=== PATIENT | male | born 2000 | race Caucasian/White ===

== ENCOUNTER 2019-02-26 12:55 | Emergency (ER) | payer MEDICAID ==
[2019-02-26 13:21] VITALS: O2SAT 98
[2019-02-26 14:28] VITALS: BP 125/74; PULSE 82; RESP 16; TEMP 98.2
--- NOTE | 2019-03-01 10:00 | ED PDOC ---
Arrival/HPI - General Chief Complaint: Abnormal Skin Integrity Time Seen by Provider: 02/26/19 14:04 Historian: Patient - History of Present Illness Narrative History of Present Illness (Text): 18 y/o male with no significant PMH presents to the ED c/o a pimple to his right lower chin with associated redness and swelling x 1 week. He states that the swollen area feels numb and tingly. Has not taken any medication for his sympto ms or seen any other providers for this complaint. Denies fever, chills, drooling, difficulty swallowing or breathing, gingival pain, dental pain, nausea, vomiting, sore throat, or any other associated symptoms. Past Medical History - Provider Review Nursing Documentation Reviewed: Yes Primary Care Physician: NO PRIMARY CARE PROVIDER - Infectious Disease Hx of Infectious Diseases: None - Psychiatric Hx Substance Use: No Family/Social History - Physician Review Nursing Documentation Reviewed: Yes Family/Social History: No Known Family HX Smoking Status: Unknown If Ever Smoked Hx Alcohol Use: No Hx Substance Use: No Allergies/Home Meds Allergies/Adverse Reactions: Allergies No Known Allergies Allergy (Verified 02/26/19 13:21) Review of Systems - Review of Systems Constitutional: Normal. absent: Fatigue, Fevers Eyes: Normal. absent: Vision Changes ENT: Normal. absent: Sore Throat, Sinus Congestion Respiratory: Normal. absent: SOB, Cough Cardiovascular: Normal. absent: Chest Pain, Palpitations, Syncope Gastrointestinal: Normal. absent: Abdominal Pain, Nausea, Vomiting Musculoskeletal: Normal. absent: Back Pain, Neck Pain Skin: Skin Lesions (right lower chin). absent: Abscess Neurological: Normal. absent: Headache, Dizziness Physical Exam Vital Signs Reviewed: Yes Vital Signs Temp Pulse Resp BP Pulse Ox 02/26/19 14:26 98.2 F 82 16 125/74 98 02/26/19 13:15 97.9 F 81 18 118/81 98 Temperature: Afebrile Blood Pressure: Normal Pulse: Regular Respiratory Rate: Normal Appearance: Positive for: Well-Appearing, Non-Toxic, Comfortable Pain Distress: None Mental Status: Positive for: Alert and Oriented X 3 - Systems Exam Head: Present: Atraumatic, Normocephalic, Swelling (right anterior chin, mild; associated redness and mild warmth). No: Ecchymosis, Abrasion, Laceration Pupils: Present: PERRL Extroacular Muscles: Present: EOMI Conjunctiva: Present: Normal Mouth: Present: Moist Mucous Membranes, Normal Tounge, Normal Teeth. No: Drooling, Trismus, Normal Lips (swelling to right lower lip, mild), Other (no gingival inflammation or swelling; no dental abscess) Pharnyx: Present: Normal. No: ERYTHEMA, EXUDATE, TONSILS ENLARGED, Muffled/Hoarse Voice, Strider, Other (no tripoding, no drooling) Neck: Present: Normal Range of Motion. No: Meningeal Signs Respiratory/Chest: Present: Clear to Auscultation, Good Air Exchange. No: Respiratory Distress, Accessory Muscle Use Cardiovascular: Present: Regular Rate and Rhythm, Normal S1, S2. No: Murmurs Upper Extremity: Present: Normal Inspection, Normal ROM, NORMAL PULSES, Neurovascularly Intact, Capillary Refill < 2s. No: Cyanosis, Edema, Temperature Abnormalties Lower Extremity: Present: Normal ROM Neurological: Present: GCS=15, CN II-XII Intact, Speech Normal, Motor Func Grossly Intact, Normal Sensory Function, Gait Normal Skin: Present: Warm, Dry, Normal Color. No: Rashes, Induration, Abscess Psychiatric: Present: Alert, Oriented x 3, Normal Insight, Normal Concentration, Normal Affect, Normal Mood Medical Decision Making ED Course and Treatment: Patient most likely with folliculitis with possible mild cellulitis. Will treat with keflex and recommend PMD/clinic followup. Diagnostic testing results and plan of care discussed with patient. Strict instructions given regarding prescription use, importance of followup, and signs/symptoms to return to ER including fever, worsening swelling, pain, drooling, or any other new/worsening symptoms. Pt verbalized understanding of discussion. Patient is A&Ox3, ambulating with steady gait, with vital signs stable for discharge. - Medication Orders Current Medication Orders: Discontinued Medications Cephalexin Monohydrate (Keflex) 500 mg PO STAT STA; Protocol Stop: 02/26/19 14:15 Last Admin: 02/26/19 14:28 Dose: Not Given Non-Admin Reason: Patient Refused Ibuprofen (Motrin Tab) 400 mg PO STAT STA Stop: 02/26/19 14:15 Last Admin: 02/26/19 14:28 Dose: Not Given Non-Admin Reason: Patient Refused Disposition/Present on Arrival - Present on Arrival Any Indicators Present on Arrival: No History of DVT/PE: No History of Uncontrolled Diabetes: No Urinary Catheter: No History of Decub. Ulcer: No History Surgical Site Infection Following: None - Disposition Have Diagnosis and Disposition been Completed?: Yes Diagnosis: Folliculitis Disposition: HOME/ ROUTINE Disposition Time: 14:20 Patient Plan: Discharge Condition: STABLE Discharge Instructions (ExitCare): Folliculitis (DC) Additional Instructions: Keflex every 6 hours for 1 week Warm compresses 10-15min at a time 4-5 times daily Ibuprofen as needed for pain Followup with clinic within 2 days Return to ER with any new/worsening symptoms Prescriptions: Cephalexin [Keflex] 500 mg PO QID 7 Days #28 capsule Mupirocin 2% Ointment [Bactroban Ointment] 1 appl TP DAILY #1 tube [place] [facility] [place] - Follow up with primary Edilma Sliva MD [Medical Doctor] - Follow up with primary Forms: [facility] (Japanese), WORK NOTE
== END 2019-02-26 14:26 | disposition home or self-care (01) ==
LOC: ED 12:55
DX: L73.9 Follicular disorder, unspecified (principal)